=== PATIENT | female | born 2000 | race Caucasian/White ===

== ENCOUNTER 2022-03-10 11:40 | Inpatient (IN) | payer OTHER ==
[~2022-03-10] VITALS: Ht 160 cm; Wt 88.9 kg
[2022-03-10] MEDS ORDERED: METHYLERGONOVINE 0.2 MG/ML AMP IM PRN ×2 (12:15→17:25)
[2022-03-10] MEDS ORDERED: ONDANSETRON 4 MG/2 ML VIAL IVP PRN (12:15)
[2022-03-10] MEDS: LACTATED RINGERS 1,000 ML IV SCH ×2 (12:15→14:01)
[2022-03-10] MEDS ORDERED: OXYTOCIN 20 UNITS in LACTATED RINGERS 1,000 ML IV SCH (12:15)
[2022-03-10] MEDS ORDERED: AMPICILLIN 2,000 MG in NACL 0.9% 100 ML IV SCH (12:19)
[2022-03-10] MEDS ORDERED: MORPHINE SULFATE 10 MG/ML VIAL IVP PRN (12:20)
[2022-03-10] MEDS ORDERED: OXYTOCIN 20 UNITS/LR PREMIX 1,000 ML IV ONE (12:55)
[2022-03-10 12:58] LABS: BASOPHILS % (AUTO) 0.2 % (0.0-2.0); EOSINOPHILS % (AUTO) 0.3 % (0.0-4.0); HEMATOCRIT 32.3 % (36-48); HEMOGLOBIN 10.5 g/dL (12.0-16.0); LYMPHOCYTES # (AUTO) 1.2 K/uL (2.5-16.5); LYMPHOCYTES % (AUTO) 15.4 % (20.5-51.1); MEAN CORPUSCULAR HEMOGLOBIN 24 pg (27-31); MEAN CORPUSCULAR HGB CONC 32 g/dL (33-37); MEAN CORPUSCULAR VOLUME 72.8 fL (80-94); MONOCYTES # (AUTO) 0.3 K/uL (0.8-1.0); MONOCYTES % (AUTO) 3.6 % (1.7-9.3); NEUTROPHILS # (AUTO) 6.1 K/uL (1.8-7.7); NEUTROPHILS % (AUTO) 80.5 % (42.2-75.2); PLATELET COUNT (AUTO) 244 K/uL (140-450); RED BLOOD CELL COUNT(AUTO) 4.44 MIL/uL (4.20-5.40); RED CELL DISTRIBUTION WIDTH 18.3 % (11.6-13.7); WHITE BLOOD COUNT (AUTO) 7.5 K/uL (4.8-10.8)
[2022-03-10 13:10] LABS: ALBUMIN 2.4 g/dL (3.4-5.0); CARBON DIOXIDE 23.6 mmol/L (21-32); CREATININE 0.5 mg/dL (0.6-1.3); POTASSIUM 3.6 mmol/L (3.5-5.1); TOTAL BILIRUBIN 0.2 mg/dL (0.0-1.0)
[2022-03-10 13:32] LABS: APPEARANCE,URINE CLEAR (CLEAR); BILIRUBIN,URINE NEGATIVE (NEGATIVE); BLOOD, URINE 1+ (NEGATIVE); COLOR,URINE YELLOW (YELLOW); LEUKOCYTE ESTERASE ,URINE NEGATIVE (NEGATIVE); NITRITE, URINE NEGATIVE (NEGATIVE); UGLUCOSE NEGATIVE (NEGATIVE)
[2022-03-10] MEDS ORDERED: ROPIVACAINE 0.2%/NS PREMIX 200 ML EPI ONE (13:42)
[2022-03-10] MEDS ORDERED: ROPIVACAINE 0.2%/NS PREMIX 100 ML EPI SCH (14:05)
[2022-03-10 14:18] VITALS: BP 127/85
[2022-03-10 15:06] LABS: RBC,URINE 0-5 /HPF (0-5); WBC,URINE 0-5 /HPF (0-5)
[2022-03-10] MEDS ORDERED: AMPICILLIN 1,000 MG VIAL ONE (16:15)
[2022-03-10] MEDS ORDERED: AMPICILLIN 1,000 MG in NACL 0.9% 50 ML IV SCH (16:20)
[2022-03-10] MEDS ORDERED: BENZOCAINE/MENTHOL 20%-0.5% 60 GM CAN TP PRN (17:25)
[2022-03-10] MEDS ORDERED: IBUPROFEN 600 MG TAB PO PRN (17:25)
[2022-03-10] MEDS ORDERED: SIMETHICONE 80 MG TAB.CHEW PO PRN (17:25)
[2022-03-10] MEDS ORDERED: METHYLERGONOVINE 0.2 MG TAB PO PRN (17:25)
[2022-03-10] MEDS ORDERED: MEASLES, MUMPS, AND RUBELLA 1 VIAL SQVAC ONE (17:25)
[2022-03-10] MEDS ORDERED: OXYTOCIN 10 UNITS/ML VIAL IM PRN (17:25)
[2022-03-10] MEDS ORDERED: DOCUSATE SODIUM 100 MG GELCAP PO PRN (17:25)
[2022-03-10] MEDS ORDERED: bisacodyL 5 MG TABEC PO PRN (17:25)
[2022-03-10] MEDS ORDERED: MEASLES, MUMPS, AND RUBELLA 1 VIAL SQVAC PRN (17:30)
[2022-03-11] MEDS: IBUPROFEN 800 MG TAB PO PRN ×2 (08:29→17:53)
--- NOTE | 2022-03-11 09:33 | NUR ---
PATIENT HAS BEEN SCREENED AND CATEGORIZED LOW NUTRITION RISK. PATIENT WILL BE SEEN WITHIN 7 DAYS OF ADMISSION. 03/16/[address]
== END 2022-03-12 15:50 | disposition home or self-care (01) | DRG 560 ==
LOC: MLD 11:40 → MFCC 20:25
PROVIDERS: ADMIT Obstetrics & Gynecology; ATTEND Obstetrics & Gynecology
PROC: 10E0XZZ Delivery of Products of Conception, External Approach (ICD-10-PCS; principal; 2022-03-10)
PROC: 0HQ9XZZ Repair Perineum Skin, External Approach (ICD-10-PCS; 2022-03-10)
PROC: 3E0R3BZ Introduction of Anesthetic Agent into Spinal Canal, Percutaneous Approach (ICD-10-PCS; 2022-03-10)
PROC: 00HU33Z Insertion of Infusion Device into Spinal Canal, Percutaneous Approach (ICD-10-PCS; 2022-03-10)
DX: O34.219 Maternal care for unspecified type scar from previous cesarean delivery (principal); Z37.0 Single live birth; O70.0 First degree perineal laceration during delivery; Z20.822 Contact with and (suspected) exposure to COVID-19; Z3A.39 39 weeks gestation of pregnancy
CPT/HCPCS: 36415; 51702; 59409; 80053; 81001; 85018; 85025; 86592; 86762; 86886; 86900; 86901; 87340; 87653-90; 90715; J0290; J2590; J2795